=== PATIENT | male | born 2005 | race African-American/Black ===

== ENCOUNTER 2025-03-08 15:45 | Emergency (ER) | payer OTHER ==
[~2025-03-08] VITALS: Ht 193 cm; Wt 125.0 kg
[2025-03-08] MEDS: ACETAMINOPHEN 325 MG TAB PO ONE (17:52)
[2025-03-08 21:30] LABS: BASO # 0.0 10^3/uL (0.0-0.2); BASO % 0.2 % (0.0-1.0); EOS # 0.0 10^3/uL (0.0-0.5); EOS % 0.2 % (0.0-3.0); LYMPH # 1.5 10^3/uL (1.5-5.0); LYMPH % 12.6 % (24.0-44.0); MONO # 1.2 10^3/uL (0.0-0.8); MONO % 10.0 % (2.0-8.0); NEUTROPHILS # 9.3 10^3/uL (1.5-8.5); NEUTROPHILS % 76.7 % (36.0-66.0); PLATELET COUNT, AUTOMATED 112 10^3/uL (150-450)
[2025-03-08] MEDS: NS (Normal Saline) 0.9% 1,000 ML IV ONE (21:30)
[2025-03-08] MEDS: KETOROLAC 30 MG/ML 1 ML VIAL IV ONE (21:31)
[2025-03-08] MEDS: AMPICILLIN SOD/SULBACTAM SOD 3 GM in DEXTROSE 5% (D5W) MINI-BAG PLU 100 ML IV ONE (21:31)
[2025-03-08 21:50] LABS: CALCIUM LEVEL 7.9 MG/DL (8.5-10.1); CARBON DIOXIDE LEVEL 28 MMOL/L (20-31); CHLORIDE LEVEL 105 MMOL/L (98-107); CREATININE FOR GFR 0.91 MG/DL (0.70-1.30); GLOMERULAR FILTRATION RATE > 90.0 (>60); POTASSIUM SERUM 3.7 MMOL/L (3.5-5.1); SODIUM LEVEL 143 MMOL/L (136-145)
[2025-03-08 21:51] LABS: C REACTIVE PROTEIN QUANTITATIV 10.96 MG/DL (<1.0)
[2025-03-08 22:17] VITALS: BP 119/61; TEMP 100.3; O2SAT 97
[2025-03-08] MEDS ORDERED: AMOX875T2 PO (22:52)
[2025-03-08] MEDS ORDERED: IBUP-1022 PO (22:52)
[2025-03-08] MEDS: dexAMETHasone 4 MG/ML 1 ML VIAL IV ONE (22:54)
== END 2025-03-08 23:05 | disposition home or self-care (01) ==
LOC: M ED 15:45
DX: J03.00 Acute streptococcal tonsillitis, unspecified (principal); Z79.1 Long term (current) use of non-steroidal anti-inflammatories (NSAID); Z79.2 Long term (current) use of antibiotics
CPT/HCPCS: 36415; 80048; 85025; 86140; 87040; 87486; 87581; 87633; 87798; 87880; 96365; 96375; 99284; J0295; J1100; J1885